=== PATIENT | female | born 1985 | race Caucasian/White ===

== ENCOUNTER → 2020-05-20 21:51 | Outpatient (CLI) | payer BC, SELFPAY ==
[2020-05-20 22:19] LABS: Absolute Neutrophil Count 5.1 X10^3/uL (2.0-7.7); Basophil# 0.06 X10^3/uL; Basophil% 0.6 % (0-1); Eosinophil# 0.19 X10^3/uL; Hemoglobin 14.6 g/dL (12.0-15.0); Lymphocyte % 36.8 % (19-41); Mean Corp Hgb Conc 33.2 g/dL (32-36); Mean Corpuscular Hgb 29.3 pg (27.0-32.0); Mean Corpuscular Volume 88.2 fL (81-99); Mean Platelet Vol. 12.4 fl (6.2-12.0); Monocyte# 0.62 X10^3/uL; Monocyte% 6.5 % (0-10); NRBC Flagged by Analyzer 0 % (0-5); Neutrophil # 5.11 X10^3/uL (2.7-7.7); Neutrophil % 53.8 % (47-70); Platelet Count 202 K/mm3 (150-450); RBC Distribution Width CV 11.6 % (11.6-14.6); RBC Distribution Width SD 37.1 fl (35.1-43.9); Red Blood Count 4.99 M/mm3 (4.2-5.4); White Blood Count 9.5 K/mm3 (4.4-11.0)
[2020-05-20 23:14] LABS: ALB/GLOB Ratio 1.3 RATIO (0.9-2.4); AST(SGOT) 23 U/L (15-37); Alanine Aminotransfer ALT/SGPT 43 U/L (13-56); Albumin, Serum 4.7 g/dL (3.2-5.0); Alkaline Phosphatase 42 U/L (45-117); Anion Gap 7 (5-15); BUN 30 mg/dL (7-18); BUN/Creat Ratio 34.7 RATIO (10-20); Calcium,Total 9.4 mg/dL (8.5-10.1); Chloride 106 mmol/L (98-107); Cholesterol 164 mg/dL (200); Creatinine, Serum 0.86 mg/dL (0.55-1.02); EST Glomerular Filtration Rate 79 mL/min (>60); Est Glom Filt Rate - Afr Amer 95 mL/min (>60); Follicle Stimulating Hormone 5.4 mIU/mL; Free T3 2.4 pg/mL (2.18-3.98); Globulin 3.6 g/dL (2.2-4.2); Glucose 86 mg/dL (74-106); High Density Lipoprotein 45 mg/dL; Luteinizing Hormone 5.6 mIU/mL; Potassium 3.8 mmol/L (3.5-5.1); Protein, Total 8.3 g/dL (6.4-8.2); Sodium Level 138 mmol/L (136-145); T4 Free Direct 1.01 ng/dL (0.76-1.46); Thyroid Stim Hormone (TSH) 1.68 uIU/mL (0.358-3.74); Triglycerides 125 mg/dL; Very Low Density Lipoprotein 25 mg/dL (5-40)
[2020-05-22 04:49] LABS: Thyroid Peroxidase AB < 9 IU/mL (0-34)
== END ==
LOC: LABSPEC 21:52 → LAB.FUTURE 05-21 07:50
PROVIDERS: Referring Provider Nurse Practitioner; Visit Provider Nurse Practitioner
DX: R53.83 Other fatigue (principal); F32.9 Major depressive disorder, single episode, unspecified; R45.86 Emotional lability; R63.5 Abnormal weight gain
CPT/HCPCS: 80053; 80061; 83001; 83002; 84439; 84443; 84481; 85025; 86376

== ENCOUNTER 2021-09-30 21:43 | Outpatient (CLI) | payer BC, SELFPAY ==
[2021-09-30 22:25] LABS: Absolute Lymphocyte Count 2.88 X10^3/uL (0.83-4.51); Absolute Neutrophil Count 4.7 X10^3/uL (2.0-7.7); Basophil# 0.06 X10^3/uL; Basophil% 0.7 % (0-1); Eosinophil# 0.25 X10^3/uL; Hematocrit 41.3 % (37-47); Hemoglobin 13.8 g/dL (12.0-15.0); Lymphocyte # 2.88 X10^3/ul (0.83-4.51); Mean Corp Hgb Conc 33.4 g/dL (32-36); Mean Corpuscular Hgb 28.4 pg (27.0-32.0); Mean Platelet Vol. 11.7 fl (6.2-12.0); Monocyte# 0.56 X10^3/uL; Monocyte% 6.6 % (0-10); NRBC Flagged by Analyzer 0 % (0-5); Neutrophil % 55.5 % (47-70); Platelet Count 193 K/mm3 (150-450); RBC Distribution Width CV 11.9 % (11.6-14.6); RBC Distribution Width SD 36.5 fl (35.1-43.9); Red Blood Count 4.86 M/mm3 (4.2-5.4); White Blood Count 8.5 K/mm3 (4.4-11.0)
[2021-09-30 22:47] LABS: Vitamin B12 479 pg/mL (211-911)
[2021-09-30 22:55] LABS: ALB/GLOB Ratio 1.2 RATIO (0.9-2.4); AST(SGOT) 15 U/L (15-37); Alanine Aminotransfer ALT/SGPT 22 U/L (13-56); Albumin, Serum 4.2 g/dL (3.2-5.0); Alkaline Phosphatase 36 U/L (45-117); Anion Gap 5 (5-15); BUN 16 mg/dL (7-18); BUN/Creat Ratio 17.9 RATIO (10-20); Calcium,Total 8.9 mg/dL (8.5-10.1); Chloride 107 mmol/L (98-107); EST Glomerular Filtration Rate 75 mL/min (>60); Est Glom Filt Rate - Afr Amer 91 mL/min (>60); Globulin 3.5 g/dL (2.2-4.2); Glucose 96 mg/dL (74-106); Potassium 4.1 mmol/L (3.5-5.1); Protein, Total 7.7 g/dL (6.4-8.2); Sodium Level 139 mmol/L (136-145); Thyroid Stim Hormone (TSH) 2.26 uIU/mL (0.358-3.74)
[2021-10-03 16:08] LABS: Anti-Centromere B Ab <0.2 AI (0.0-0.9); Anti-Chromatin <0.2 AI (0.0-0.9); Anti-Jo <0.2 AI (0.0-0.9); Anti-Scleroderma-70 AB <0.2 AI (0.0-0.9); RNP Ab 0.2 AI (0.0-0.9); SJOGREN'S Anti-SS-A test < 0.2 AI (0.0-0.9); SJOGREN'S Anti-SS-B test < 0.2 AI (0.0-0.9); Smith Ab <0.2 AI (0.0-0.9)
[2021-10-04 13:25] LABS: Anti-dsDNA Ab 2 IU/mL (0-9)
[2021-10-04 15:08] LABS: Endomysial Antibody IgA Negative (Negative); Immunoglobulin A 231 mg/dL (87-352)
[2021-10-04 15:15] LABS: Deamidated Gliadin IgA 4 units (0-19); Deamidated Gliadin IgG 2 units (0-19); EBV Acute VCA IgM < 36.0 U/mL (0.0-35.9); EBV Nuclear Antigen IgG > 600.0 U/mL (0.0-17.9); EBV-VCA IgG > 600.0 U/mL (0.0-17.9); t-Transglutaminase IgA <2 U/mL (0-3)
== END 2021-09-30 23:59 | disposition home or self-care (01) ==
PROVIDERS: Visit Provider Nurse Practitioner
DX: T73.3XXA Exhaustion due to excessive exertion, initial encounter (principal); R45.86 Emotional lability; F32.89 Other specified depressive episodes; M25.50 Pain in unspecified joint
CPT/HCPCS: 80053; 82607; 82652; 82784; 83516; 84443; 85025; 86225; 86235; 86255; 86664; 86665

== ENCOUNTER → 2024-10-08 | Outpatient (CLI) | payer BC, SELFPAY ==
[2024-10-09 01:16] LABS: Follicle Stimulating Hormone 2.6 mIU/mL; Luteinizing Hormone 4.6 mIU/mL
[2024-10-10 14:08] LABS: EBV Acute VCA IgM < 36.0 U/mL (0.0-35.9); EBV Nuclear Antigen IgG > 600.0 U/mL (0.0-17.9); EBV-VCA IgG > 600.0 U/mL (0.0-17.9)
== END | disposition home or self-care (01) ==
PROVIDERS: Referring Provider Nurse Practitioner; Visit Provider Nurse Practitioner
DX: E16.2 Hypoglycemia, unspecified (principal); E03.9 Hypothyroidism, unspecified; R11.2 Nausea with vomiting, unspecified; R45.86 Emotional lability; G43.101 Migraine with aura, not intractable, with status migrainosus; T73.3XXA Exhaustion due to excessive exertion, initial encounter; X58.XXXA Exposure to other specified factors, initial encounter
CPT/HCPCS: 83001; 83002; 84443; 86664; 86665